=== PATIENT | female | born 1990 | race Caucasian/White ===

== ENCOUNTER 2017-03-07 10:58 | Inpatient (IN) ==
[2017-03-10] MEDS ORDERED: ZOLPIDEM 5 MG TABLET PO PRN (17:20)
[2017-03-10] MEDS ORDERED: HYDROCODONE/APAP 5mg/325mg TABLET PO PRN (17:20)
[2017-03-10] MEDS ORDERED: SALINE FLUSH 10ml SYRINGE IVF PRN (17:20)
[2017-03-10] MEDS ORDERED: MAG-AL + SIM ORAL LIQUID 30ml PO PRN (17:21)
[2017-03-10] MEDS ORDERED: METHYLERGONOVINE 0.2 MG/ML INJECTION IM PRN (17:21)
[2017-03-10] MEDS ORDERED: ACETAMINOPHEN 500 MG TABLET PO PRN (17:21)
[2017-03-10] MEDS ORDERED: CALCIUM CARBONATE Chewable 500mg TABLET PO PRN (17:21)
[2017-03-10] MEDS ORDERED: CARBOPROST 250 MCG/ML INJECTION IM PRN (17:21)
[2017-03-10] MEDS ORDERED: LIDOCAINE 1% (10mg/ml) 2mL INJ PF SDV ID PRN (17:21)
[2017-03-10] MEDS ORDERED: D5LR 1,000 ML IV PRN (18:19)
--- NOTE | 2017-03-10 18:25 | Progress Note ---
OB PP Progress Note Free Text - Date Date: 03/10/17 - Progress Note Progress Note: Tom bulb easily placed in sterile fashion through cervix. Pt tolerated procedure well. FHTs reactive. Q&A
[2017-03-11] MEDS: LR 1,000 ML IV PRN ×2 (04:57→07:05)
[2017-03-11] MEDS: AMPICILLIN 1 GM in NS 100 ML IV SCH ×2 (04:59→08:56)
[2017-03-11] MEDS ORDERED: OXYTOCIN DRIP 30 UNIT/500 ML ML IV PRN (05:00)
[2017-03-11] MEDS ORDERED: ONDANSETRON 4 MG/2 ML INJECTION IVP PRN (08:22)
[2017-03-11] MEDS ORDERED: DiphenhydrAMINE 50 MG/ML INJECTION IVP PRN (08:22)
[2017-03-11] MEDS ORDERED: ROPIVACAINE 1% 10MG/ML INJ 200 MG, SUFentanil 50 MCG in NS 100 ML EPI PRN (08:22)
[2017-03-11] MEDS ORDERED: NALOXONE 0.4 MG/ML INJECTION IVP PRN (08:22)
--- NOTE | 2017-03-11 08:22 | Anesthesia Preoperative Report ---
Anesthesia Epidural/Spinal Rec - Date and Time Date: 03/11/17 Preoperative Diagnosis: Procedure: Labor Epidural Plan: Epidural - Vital Signs Vital Signs: Temp Pulse Resp BP Pulse Ox 98.3 F 88 18 117/70 97 03/11/17 03:05 03/11/17 03:05 03/11/17 03:05 03/11/17 03:05 03/10/17 17:15 /Para: P:0 - Medictaions & Allergies Inpatient Medications: Current Medications Acetaminophen (Tylenol) 500 - 1,000 mg PO Q4H PRN PRN Reason: Pain Acetaminophen/Hydrocodone Bitart ([place] 5/325) 1 - 2 tab PO Q4H PRN PRN Reason: Pain Last Admin: 03/10/17 21:31 Dose: 2 tab Al Hydroxide/Mg Hydroxide (Maalox Plus) 30 ml PO Q3H PRN PRN Reason: Indigestion Calcium Carbonate (Tums) 500 - 1,000 mg PO Q2H PRN PRN Reason: Indigestion Carboprost Tromethamine (Hemabate) 250 mcg IM O PRN Lactated Ringer's (Lactated Ringers) 1,000 mls @ 1,000 mls/hr IV .Q1H PRN PRN Reason: as directed Last Admin: 03/11/17 04:57 Dose: 1,000 mls/hr Ampicillin Sodium 1 gm/ Sodium (Chloride) 100 mls @ 200 mls/hr IV Q4H YEYO Last Infusion: 03/11/17 05:39 Dose: Infused Dextrose/Lactated Ringer's (Dextrose 5%-Lactated Ringers) 1,000 mls @ 125 mls/ hr IV .Q8H PRN PRN Reason: Labor Last Admin: 03/11/17 04:58 Dose: 125 mls/hr Oxytocin (Pitocin Drip) 30 unit in 500 mls @ 2 mls/hr IV .Q24H PRN; Protocol PRN Reason: Induction/Augmentation Last Admin: 03/11/17 04:58 Dose: 2 mls/hr Lidocaine HCl (Xylocaine-Mpf 1% Vial) 0.2 mg ID O PRN PRN Reason: IV Start Methylergonovine Maleate (Methergine) 0.2 mg IM O PRN Misoprostol (Cytotec) 800 mcg DE ONCE PRN Sodium Chloride (Iv Flush) 10 - 80 ml IVF PRN PRN PRN Reason: Flushing Zolpidem Tartrate (Ambien) 5 mg PO O PRN PRN Reason: Insomnia Allergies/Adverse Reactions: Allergies Allergy/AdvReac Type Severity Reaction Status Date / Time No Known Allergies Allergy Verified 03/10/17 18:23 - Home Medications Home Medications: Home Medications Medication Instructions Recorded Confirmed Type PEG 3350 17gm PACKET [Miralax] 1 packet PO PRN 03/10/17 03/10/17 History Pnv-Select Tablet 1 tab PO DAILY 03/10/17 03/10/17 History - Surgical History Anesthesia Reactions: None Hx Family Anesthesia Reaction: No History of Motion Sickness: No - Social History Second Hand Exposure: No Time spent discussing smoking cessation with patient: 3 to 10 minutes Substance Use Type: does not use Alcohol Intake Frequency: does not drink - Pertinent Findings Lab Data: CBC and BMP 03/10/17 17:33 EKG Rhythm: Normal Sinus Rhythm - Physical Exam Respiratory Exam: lungs clear Cardiovascular Exam: regular rate and rhythm - Airway Assessment Mallampati Score: II TMD: 3 Fingerbreadths Neck Extension: good Overall Assessment: may be difficult intubation - ASA ASA Score: 2 - Discussion Discussion: Discussed risks/options/alternatives of anesthesia and questions answered. Patient consents. Nursing pain assessment noted. Anesthesia Discussion: spouse Attestation Statement: Prior to the delivery of any anesthetic medication, I examined the patient, developed the plan, obtained the patient's consent and discussed the risk and benefits of the procedure with the patient/guardian.
[2017-03-11] MEDS ORDERED: CALCIUM CARBONATE Chewable 500mg TABLET PO PRN (11:47)
[2017-03-11] MEDS ORDERED: SALINE FLUSH 10ml SYRINGE IVF PRN (11:47)
[2017-03-11] MEDS ORDERED: MAG-AL + SIM ORAL LIQUID 30ml PO PRN (11:47)
[2017-03-11] MEDS ORDERED: ACETAMINOPHEN 500 MG TABLET PO PRN (11:47)
[2017-03-11] MEDS ORDERED: DiphenhydrAMINE 25 MG CAPSULE PO PRN (11:47)
[2017-03-11] MEDS ORDERED: PHENYLEPHRINE RECTAL SUPPOSITORY PR PRN (11:47)
[2017-03-11] MEDS ORDERED: OXYTOCIN DRIP 30 UNIT/500 ML ML IV SCH (12:00)
[2017-03-11] MEDS ORDERED: HYDROCODONE/APAP 5mg/325mg TABLET PO PRN (12:07)
[2017-03-11] MEDS: IBUPROFEN 800 MG TABLET PO SCH (13:28)
--- NOTE | 2017-03-11 15:29 | Labor and Delivery Note ---
DATE OF DELIVERY She was admitted on 03/10/2017 and then delivered on 03/11/2017. DELIVERY NOTE Ms. Ha progressed very well and very rapidly in first stage of labor. She began to push with excellent effort at the complete and +1-2 presentation. She pushed for a little over an hour, delivering the head in the OA position. Baby was bulb suctioned on the perineum. There was no evidence of nuchal cord. With about three further pushes, baby was delivered in total. Baby was then further bulb suctioned and placed on mother's abdomen. After about 3 minutes the cord was doubly clamped. It was cut by the baby's father, Davion. This is a liveborn female with Apgars of 8/9. She weighed 7 pounds, 10.3 ounces. After a few moments the placenta delivered spontaneously, intact. It had a normal-appearing cord and three vessels. There was a first-degree midline laceration in the vagina that extended to the right vaginal sidewall and little bit to the left. This was repaired with running nonlocking 2-0 Vicryl. Total blood loss was approximately 300 ml. At the time of this dictation mother and baby are doing well. [facility], [place] A
--- NOTE | 2017-03-11 20:24 | Anesthesia Postoperative Note ---
- Date and Time Date: 03/11/17 Time: 20:23 - Status Patient Participated in Evaluation: Patient Participated in Person Vital Signs: Temp Pulse Resp BP Pulse Ox 98.5 F 82 18 108/65 97 03/11/17 13:47 03/11/17 13:47 03/11/17 03:05 03/11/17 13:47 03/10/17 17:15 Respiratory Function: Airway Patent Cardiovascular Function: Regular Pulse Mental Status: Alert and Oriented Pain Intensity: 0 Hydration: Taking PO Fluids Complications During Recover: None Apparent - Follow-Up Instructions Instructions: Per Surgeon Additional Comments: all sensation and motor has returned. no complications
[2017-03-12] MEDS: IBUPROFEN 800 MG TABLET PO SCH ×5 (00:12→23:53)
--- NOTE | 2017-03-12 08:04 | OB/GYN Progress Note ---
OB-PP Progress Note - General PPD1 Group B Streptococcal Result: Positive - Subjective Date: 03/12/17 Lochia: Minimal Pain: contolled Voiding: voiding Nausea or Vomiting Present: No - Objective Vital Signs: Last Vital Signs Temp 98.1 F 03/12/17 07:52 Pulse 71 03/12/17 07:52 Resp 16 03/12/17 07:52 BP 115/72 03/12/17 07:52 Pulse Ox 98 03/12/17 07:52 Urine Output: good General: alert and oriented Abdomen: non-tender Extremities: non-tender Edema: none Laboratory: 03/10/17 17:33 - Assessment Assessment: , GBS positive - Plan Plan: routine care (Plan for discharge tomorrow.)
[2017-03-12] MEDS: DOCUSATE CALCIUM 240 MG CAPSULE PO SCH (10:51)
--- NOTE | 2017-03-13 08:25 | Discharge Summary ---
Discharge Plan - Med Rec/Dispo Prescriptions: New Docusate Calcium [Surfak] 240 mg PO DAILY cap Hydrocodone/APAP 5/325 [[place] 5/325] 1 - 2 tab PO Q4H PRN #20 tab PRN Reason: Pain Ibuprofen [Motrin] 800 mg PO Q8H #30 tab Continue Pnv-Select Tablet 1 tab PO DAILY Discontinued PEG 3350 17gm PACKET [Miralax] 1 packet PO PRN - Disposition 01 Discharged Home, Self-Care
[2017-03-13] MEDS: IBUPROFEN 800 MG TABLET PO SCH (08:35)
--- NOTE | 2017-03-13 08:35 | OB/GYN Progress Note ---
OB-PP Progress Note - General PPD1, PPD2 Group B Streptococcal Result: Positive Blood Type: O (+) positive - Subjective Date: 03/13/17 Lochia: Moderate Pain: contolled Voiding: voiding Nausea or Vomiting Present: No - Objective Vital Signs: Last Vital Signs Temp 98.1 F 03/13/17 07:35 Pulse 69 03/13/17 07:35 Resp 16 03/13/17 07:35 BP 109/74 03/13/17 07:35 Pulse Ox 99 03/13/17 07:35 Urine Output: good General: alert and oriented Respiratory: non-labored Abdomen: non-tender, soft, non-distended Extremities: non-tender Edema: none Edema Degree: 0 Laboratory: 03/10/17 17:33 - Assessment Assessment: SP, , GBS positive - Plan Plan: routine care Expected date of discharge: 03/13/17
[2017-03-13] MEDS: DOCUSATE CALCIUM 240 MG CAPSULE PO SCH (08:36)
== END 2017-03-13 11:15 | disposition home or self-care (01) | DRG 775 ==
LOC: MC 03-10 17:07
PROVIDERS: ADMIT Obstetrics & Gynecology; ATTEND Obstetrics & Gynecology